=== PATIENT | male | born 1940 ===

== ENCOUNTER 2020-10-08 09:31 | Day surgery (SDC) | payer MEDICARE ==
[~2020-10-08] VITALS: Ht 167.6 cm; Wt 80.9 kg
[~2020-10-08 09:31] MED LIST: AMIO200 PO; ASPI325EC PO; ATROVASTATIN PO; BENA20 PO; CEPH500 PO; CLOP75 PO; COLE1 PO; CYAN100 PO; DOCU100 PO; FISH1000 PO; FURO40 PO; ISOMON30 PO; LISI5 PO; METO50 PO; MULVITA PO; OXYACE5T PO; POTCHL20ER PO; SULTRIDS PO; VERA180ERB PO
[2020-10-08] MEDS ORDERED: ELIQUIS2.5 MG PO (10:22)
[2020-10-08] MEDS ORDERED: Aspir 8181 MG PO (10:23)
[2020-10-08] MEDS ORDERED: ATOR40TA PO (10:23)
[2020-10-08] MEDS ORDERED: LISI20 PO (10:23)
[2020-10-08] MEDS ORDERED: METO25 PO (10:23)
--- NOTE | 2020-10-08 10:49 | NUR ---
PT REMAINS ASLEEP POST PROCEDURE. WILL CONTINUE TO MONITOR UNTIL DC HOME. VSS.
--- NOTE | 2020-10-08 11:40 | NUR ---
IV DC'D, CATH INTACT. PT, , AND DAUGHTER HAVE BEEN GIVEN DC INSTRUCTIONS, VERBALIZED UNDERSTANDING. PT DENIES ANY DISCOMFORT AT TIME OF DISCHARGE. WILL FOLLOW UP WITH DR TANNER SCHEDULED. OUT TO CAR VIA WHEELCHAIR.
== END 2020-10-08 22:46 | disposition home or self-care (01) ==
LOC: MHTC 09:31
DX: I48.91 Unspecified atrial fibrillation (principal); I10 Essential (primary) hypertension; I25.10 Atherosclerotic heart disease of native coronary artery without angina pectoris; E78.5 Hyperlipidemia, unspecified; I25.2 Old myocardial infarction; Z95.1 Presence of aortocoronary bypass graft; Z87.891 Personal history of nicotine dependence; Z79.82 Long term (current) use of aspirin
CPT/HCPCS: 93005; 93010; 93312; 93325; A9270; J2250; J2310; J3010; J7030